=== PATIENT | male | born 1975 | race Caucasian/White ===

== ENCOUNTER 2022-07-07 23:47 | Emergency (ER) | payer OTHER, SELFPAY ==
[2022-07-07 23:50] VITALS: BP 161/78; PULSE 60; RESP 18; TEMP 36.9; O2SAT 98
--- NOTE | 2022-07-08 02:39 | PC.NURSE ---
patient left from waiting area
== END 2022-07-08 02:39 | disposition left against medical advice (07) ==
LOC: ANHED 07-08 02:51
PROVIDERS: PCP Family Medicine
DX: Z53.21 Procedure and treatment not carried out due to patient leaving prior to being seen by health care provider (principal)
CPT/HCPCS: 99199

== ENCOUNTER 2022-07-08 08:02 | Emergency (ER) | payer OTHER, SELFPAY ==
[2022-07-08 08:10] VITALS: BP 132/83; PULSE 76; RESP 16; TEMP 36.8; O2SAT 97
--- NOTE | 2022-07-08 08:23 | ED.EAR ---
HPI - Ear Problem General Chief complaint: Ear Stated complaint: L EARACHE/DISCHARGE Time Seen by Provider: 07/08/22 08:18 Source: patient and RN notes reviewed Mode of arrival: ambulatory Limitations: no limitations History of Present Illness HPI Narrative: 47-year-old male presents concern for left ear pain, bleeding from left ear. He reports he had sudden onset of pain and pressure yesterday with decreased hearing, last night before bed the pain increased and then suddenly stopped and then he had bloody drainage from the ear. He reports history of ruptured tympanic membrane. He denies any recent cold symptoms or trauma. Complaint: ear pain Related Data Allergies Allergy/AdvReac Type Severity Reaction Status Date / Time No Known Allergies Allergy Verified 07/08/22 08:22 Review of Systems Review of Systems: CONSTITUTIONAL: Denies malaise, chills, sweats, or fever. EYES: Denies visual changes, redness, or discharge. ENT: Denies rhinorrhea, congestion, sinus pain, and sore throat. Reports left ear pain and bloody drainage CARDIOVASCULAR: Denies chest pain, palpitations, or edema. RESPIRATORY: Denies cough. Denies dyspnea. GASTROINTESTINAL: Denies abdominal pain, nausea, vomiting, diarrhea SKIN: Denies rash or itching. MUSCULOSKELETAL: Denies myalgia. NEUROLOGIC: Denies headache. All systems reviewed & are unremarkable except as noted in HPI and below PMFSH Social History Social History Smoking status: Never smoker Alcohol intake: current Comments At time of signature, agree with nursing past medical, surgical, social and family history. There is no relevant family history pertinent to the presenting complaint Exam Narrative: GENERAL: Well-appearing, well-nourished, and in no acute distress. HEAD: Normocephalic EYES: PERRLA, conjunctivae clear ENT: Nares clear, turbinates edematous, clear discharge. Mucous membranes moist. Right tM pearly maya with dull light reflex, left TM ruptured with bloody drainage; no tragal tenderness. NECK: Supple. No lymphadenopathy CHEST: Clear to auscultation, breath sounds equal. No wheezing, rhonchi, rales, or stridor. No respiratory distress, speaks in full sentences. HEART: Regular rate and rhythm. No murmur heard. SKIN: Warm, dry, no rash. NEURO: Alert and oriented x3. PSYCH: Normal mood and affect Course Course Emergency Course: Patient is aware of diagnosis, understands and agrees to treatment plan. Anticipatory guidance given. Patient agrees to follow-up as directed and is aware of reasons to seek care at the emergency department. Portions of this record may have been created with voice recognition software Level of Care: Express Care Visit Vital Signs Vital signs: Vital Signs Temperature 98.2 F 07/08/22 08:10 Pulse Rate 76 07/08/22 08:10 Respiratory Rate 16 07/08/22 08:10 Blood Pressure 132/83 07/08/22 08:10 Pulse Oximetry 97 07/08/22 08:10 Temperature 98.2 F 07/08/22 08:10 Pulse Rate 76 07/08/22 08:10 Respiratory Rate 16 07/08/22 08:10 Blood Pressure 132/83 07/08/22 08:10 Pulse Oximetry 97 07/08/22 08:10 Reviewed. Medical Decision Making MDM Narrative Medical decision making narrative: Differential diagnosis considered: Blank virus, strep pharyngitis, allergic rhinitis, upper respiratory tract infection, sinusitis, rhinosinusitis, nasopharyngitis. viral pharyngitis, otitis media, otitis externa, otitis effusion, cerumen impaction, foreign body. Exam findings show no acute concerns or changes; patient is non-toxic appearing and is in no distress. Patient is appropriate for outpatient treatment and follow-up. Vital Signs Vital Signs: Vital Signs Temperature 98.2 F 07/08/22 08:10 Pulse Rate 76 07/08/22 08:10 Respiratory Rate 16 07/08/22 08:10 Blood Pressure 132/83 07/08/22 08:10 Pulse Oximetry 97 07/08/22 08:10 Temperature 98.2 F 07/08/22 08:10 Pulse Rate 76 07/08/22 08:10 Respiratory R
== END 2022-07-08 08:30 | disposition home or self-care (01) ==
PROVIDERS: Emergency Provider Nurse Practitioner
DX: H66.92 Otitis media, unspecified, left ear (principal)
CPT/HCPCS: 99213; G0463

== ENCOUNTER 2024-03-24 08:39 | Emergency (ER) | payer OTHER, SELFPAY ==
[2024-03-24 08:57] VITALS: BP 146/104; PULSE 73; RESP 16; TEMP 36.4; O2SAT 97
--- NOTE | 2024-03-24 09:13 | ED.EAR ---
HPI - Ear Problem General Chief complaint: Ear Stated complaint: Ear Pain Time Seen by Provider: 03/24/24 09:08 Source: patient Mode of arrival: ambulatory Limitations: no limitations History of Present Illness HPI Narrative: João is a 48-year-old male patient presenting to the clinic today with complaints of decreased hearing from the left ear that started this morning. He reports states that he originally has tinnitus however seem like the tinnitus was worse and could not hear much out of the left ear he woke up. He reports that the drive here he started to be able to hear a little bit out of the left ear. Thinks that he may have a cerumen impaction. Related Data Home Medications Medication Instructions Recorded Confirmed cetirizine 10 mg tablet (Zyrtec) 10 mg PO DAILY PRN Allergic 09/29/22 03/24/24 Symptoms fluticasone propionate 50 1 spray intranasal DAILY PRN 09/29/22 03/24/24 mcg/actuation nasal Allergic Symptoms spray,suspension (Flonase Allergy Relief) Allergies Allergy/AdvReac Type Severity Reaction Status Date / Time No Known Allergies Allergy Verified 03/24/24 09:01 Review of Systems Review of Systems: Pertinent positives per HPI. Patient denies any fever, chills, rash, headache, visual changes, dizziness, cough, runny nose, sore throat, shortness of breath, chest pain, palpitations, nausea, vomiting, diarrhea, constipation, abdominal pain, or any urinary issues. [facility] Past Medical History Medical History Hx of perforation of tympanic membrane Seasonal allergies Family History Family History Father Hypertension Lung cancer Arrhythmia Grandparent Lung cancer Social History Social History Smoking status: Never smoker Alcohol intake: current Alcohol use details: rarely Substance use: never Substance use type: does not use Lack of Transportation: No Lack of Food: Never True Current Housing: I Have Housing Concerned About Future Housing: No Difficulty Paying Gas/Electric Bills: No Difficulty Paying for Meds: No Currently Unemployed: No Education: Associate Degree Difficulty w/ Childcare or Family Care: No Living arrangements: with family Occupation/Education: occupation Comments At the time of my signature, I reviewed and agree with the nursing past medical, surgical, social, and family history. There is no relevant family history pertinent to the patient complaint. Exam Narrative: General: Well-developed, well nourished, in no apparent distress Head: Normocephalic, atraumatic Eyes: Pupils equally round and reactive to light bilaterally, EOM intact, sclera and conjunctive clear, no discharge, lids normal Ears: Right TMs intact and clear, left TM intact, mild bulging, congested, ear canals clear, no drainage, grossly hearing normal. Nose: Nares patent, no discharge, no inflammation, no sinus tenderness. Mouth: Oropharynx without lesions or masses, good dentition, MMM. Neck: Supple, trachea midline, no enlargement of anterior or posterior cervical nodes, no thyroid masses or goiter palpable. Cardio: Regular rate and rhythm, s1 and s2 normal, no murmur appreciated. Resp: Clear to auscultation bilaterally anteriorly and posteriorly, no rhonchi, rales, wheezing or rubs Course Course Emergency Course: Portions of this record may have been created with voice recognition software. Level of Care: Express Care Visit Vital Signs Vital signs: Vital Signs Temperature 36.4 C 03/24/24 08:57 Pulse Rate 73 03/24/24 08:57 Respiratory Rate 16 03/24/24 08:57 Blood Pressure 146/104 H 03/24/24 08:57 Pulse Oximetry 97 03/24/24 08:57 Temperature 36.4 C 03/24/24 08:57 Pulse Rate 73 03/24/24 08:57 Respiratory Rate 16 03/24/24 08:57 Blood Pressure 146/104 H 03/24/24 08:57 Pulse Oximetry 97 03/24/24 08:57 Vital signs reviewed Medical Decision Making MDM Narrative Medical decision making narrative: At the time of visit patient is resting comfortably on the exam table. Patient appears to be nontoxic. Plan: I suspect patient has serous otitis of the left ear. Prescription for prednisone was sent to the pharmacy. Supportive measures were discussed with the patient and they voiced understanding discharge instructions and agrees to treatment plan. Return precautions reviewed Differential Diagnosis Differential Diagnosis: Otitis media, otitis externa, eustachian tube dysfunction, cerumen impaction, upper respiratory infection, serous otitis,, otalgia Vital Signs Vital Signs: Vital Signs Temperature 36.4 C 03/24/24 08:57 Pulse Rate 73 03/24/24 08:57 Respiratory Rate 16 03/24/24 08:57 Blood Pressure 146/104 H 03/24/24 08:57 Pulse Oximetry 97 03/24/24 08:57 Temperature 36.4 C 03/24/24 08:57 Pulse Rate 73 03/24/24 08:57 Respiratory Rate 16 03/24/24 08:57 Blood Pressure 146/104 H 03/24/24 08:57 Pulse Oximetry 97 03/24/24 08:57 Discharge Plan Discharge Clinical Impression: Acute serous otitis media Qualifiers: Laterality: left Recurrence: non-recurrent Qualified Code(s): H65.02 - Acute serous otitis media, left ear Patient Disposition: Home, Self-Care Condition: Stable Instructions: Antibiotic Form, Fluid In The Ear (Serous Otitis Media) (ED) Additional Instructions: Take any prescribed medications only as directed-prednisone Tylenol/motrin as needed for pain May take Flonase and [id number] antihistamine such as Zyrtec or Claritin as discussed May use heating pad to alleviate pain If you get recurrent ear infections it may be warranted to follow up with ENT. Follow up with your PCP in 3-5 days if symptoms persist. Prescriptions: New prednisone 20 mg tablet 40 mg PO DAILY 5 Days Qty: 10 0RF No Action cetirizine [Zyrtec] 10 mg tablet 10 mg PO DAILY PRN (Reason: Allergic Symptoms) fluticasone propionate [Flonase Allergy Relief] 50 mcg/actuation spray,suspension 1 spray intranasal DAILY PRN (Reason: Allergic Symptoms) Rx Instructions: administer into each nostril Follow-up/Referrals: Kathy Smith MD [Primary Care Provider] - Time of Disposition: 09:17 Quality NIHSS Nursing Documentation ED NIHSS nursing documentation: reviewed/agree
== END 2024-03-24 09:21 | disposition home or self-care (01) ==
PROVIDERS: Emergency Provider Nurse Practitioner Family; PCP Family Medicine
DX: H65.02 Acute serous otitis media, left ear (principal)
CPT/HCPCS: 99213; G0463